=== PATIENT | male | born 1995 | race African-American/Black ===

== ENCOUNTER 2020-02-26 12:03 | Emergency (ER) | payer SELFPAY ==
[~2020-02-26] VITALS: Ht 188 cm; Wt 74.8 kg
[2020-02-26 12:05] VITALS: BP 140/78
--- NOTE | 2020-02-26 12:51 | NUR ---
Patient discharged to home in stable condition. Written and verbal after care instructions given. Patient verbalizes understanding of instruction.
== END 2020-02-26 12:52 | disposition home or self-care (01) ==
LOC: ER 12:03
DX: J02.0 Streptococcal pharyngitis (principal)